=== PATIENT | male | born 2000 | race Hispanic/Latino ===

== ENCOUNTER 2018-05-30 10:47 | Emergency (ER) | payer MEDICAID ==
[2018-05-30] MEDS ORDERED: COLACE PO ONE (11:41)
--- NOTE | 2018-05-30 11:42 | Emergency Department Report ---
Minor Respiratory - HPI Chief Complaint: Earache Stated Complaint: CANT HEAR OUT (R) EAR FOR 2DAYS Time Seen by Provider: 05/30/18 11:41 Duration: 2 Days Pain Location: Ear Severity: mild Minor Respiratory: Yes Ear Pain, No Rhinorrhea, No Sore Throat, No Able to Tolerate Fluids, No Cough, No Sick Contacts, No Hemoptysis, No Chest Pain, No Shortness of Breath, No Fever Other History: She is a 18-year-old male who presents to the emergency room today complaining of inability to hear out of his right ear for 2 days. He denies fever or other signs or symptoms of upper respiratory tract infection ED Review of Systems ROS: Stated complaint: CANT HEAR OUT (R) EAR FOR 2DAYS Other details as noted in HPI Comment: All other systems reviewed and negative Constitutional: denies: chills Eyes: denies: eye pain ENT: as per HPI, ear pain Respiratory: denies: cough Cardiovascular: denies: palpitations ED Past Medical Hx - Past Medical History Hx Hypertension: Yes Hx Psychiatric Treatment: Yes (ADHD) Hx Asthma: Yes - Surgical History Past Surgical History?: No - Social History Smoking Status: Never Smoker Substance Use Type: None - Medications Home Medications: Home Medications Medication Instructions Recorded Confirmed Last Taken Type predniSONE [Deltasone] 20 mg PO QDAY #5 tab 02/24/18 Unknown Rx traMADol [Ultram] 50 mg PO Q6HR PRN #12 tablet 02/24/18 Unknown Rx Minor Respiratory Exam - Exam General: Vital signs noted. No distress. Alert and acting appropriately. HEENT: Yes Moist Mucous Membranes, No Pharyngeal Erythema, No Pharyngeal Exudates, No Rhinorrhea, No Conjuctival Injection, No Frontal Tenderness, No Maxillary Tenderness Ear: Neither TM Bulge, Neither TM Erythema, Neither EAC Pain, Neither EAC Discharge (R EAR WAX impaction) Neck: Yes Supple, No Adenopathy Lungs: Yes Good Air Exchange, No Wheezes, No Ronchi, No Stridor, No Cough, No Labored Respirations, No Retractions, No Use of Accessory Muscles, No Other Abnormal Lung Sounds Heart: Yes Regular, No Murmur Abdomen: Yes Normal Bowel Sounds, No Tenderness, No Peritoneal Signs Skin: No Rash, No Edema Neurologic: Alert and oriented, no deficits. Musculoskeletal: Unremarkable. ED Course Vital Signs 05/30/18 11:11 Temperature 98.8 F Pulse Rate 89 Respiratory 18 Rate Blood Pressure 146/84 O2 Sat by Pulse 97 Oximetry - Reevaluation(s) Reevaluation #1: 05/30/18 12:28 COLACE USED TO SOFTEN EAR WAX EAR FLUSHED WITH WARM NS FLUSH ED Medical Decision Making - Medical Decision Making R EAR WAX IMPACTION - Differential Diagnosis R EAR IMPACTION Critical care attestation.: If time is entered above; I have spent that time in minutes in the direct care of this critically ill patient, excluding procedure time. ED Disposition Clinical Impression: Impacted ear wax Disposition: DC-01 TO HOME OR SELFCARE Is pt being admited?: No Does the pt Need Aspirin: No Condition: Stable Instructions: Cerumen Impaction (ED) Additional Instructions: DO NOT PUT ANYTHING IN YOUR EAR NO FINGER NO QTIP NO PEROXIDE MOTRIN OR TYLENOL FOR PAIN USE CERUMENEX OVER THE COUNTER TO CLEAN YOUR EARS SEVERAL TIMES PER DAY FOLLOW UP WITH PCP OR ENT IF PROBLEM PERSISTS Referrals: DESIRE NAVAS [Primary Care Provider] - 3-5 Days Time of Disposition: 12:23
[2018-05-30 15:29] VITALS: BP 146/84
== END 2018-05-30 12:49 | disposition home or self-care (01) ==
LOC: ED 10:47
DX: H61.21 Impacted cerumen, right ear (principal); I10 Essential (primary) hypertension; J45.909 Unspecified asthma, uncomplicated; F90.9 Attention-deficit hyperactivity disorder, unspecified type
CPT/HCPCS: 99282